=== PATIENT | male | born 1995 | race African-American/Black ===

== ENCOUNTER → 2021-11-19 | Outpatient (REF) | payer OTHER, SELFPAY ==
[2021-11-20 00:09] LABS: GC DNA AMPLIFICATION NEGATIVE (NEGATIVE)
== END ==
LOC: M LAB REF 22:15
PROVIDERS: ATTEND Physician Assistant Medical
DX: Z11.3 Encounter for screening for infections with a predominantly sexual mode of transmission (principal)